=== PATIENT | male | born 1935 | race Caucasian/White ===

== ENCOUNTER → 2017-07-16 | Outpatient (CLI) | payer MEDICARE, OTHER ==
[~2017-07-16] MED LIST: ADVAIR 10028 PUFF/IN IN; CHLORDIAZEPOXID10 MG PO; DILTIAZEM30 MG FT; DOXAZOSIN2 MG PO; LIPITOR10 MG PO; NEXIUM40 MG PO; SYNTHROID 0.00.05 MG PO
--- NOTE | 2017-07-16 15:01 | RADIOLOGY REPORT PS360 ---
PROCEDURE: 2-D M-mode and color Doppler study INDICATIONS FOR THE TEST: Chest pain X COPDX Heart MurmurX Tobacco SmokingEX PalpitationsX Fatigue Syncope Edema HypertensionXDiabetes Mellitus Rheumatic Fever SOB DOEXObesity Hyperlipidemia Family History HD Additional History PATIENT INFORMATION HEIGHT: 66 WEIGHT:186 GENDER: Male B/P:144/83 2-D/M-MODE INTERPRETATION: 2-D MEASUREMENTS OBSERVED VALUES IN CMS Right Ventricular Dimension (RVDd) 2.2 Interventricular Septum (Thickness)(IVsd) 1.2 Left Ventricular Internal Dimensions(LVIDd) 3.6 Left Ventricular Posterior Wall (Thickness)(LVPWd) 1.2 Aortic Root 3.8 Aortic Cusp Separation 2.8 Left Atrial Dimensions (LAD) 3.1 2D 1. Left atrium is qualitatively mildly enlarged, left ventricle is normal size, there is mild concentric hypertrophy, visually estimated ejection fraction 55% with no obvious regional wall motion abnormality. 2. The right atrium and right ventricle are mildly enlarged with normal contractility. 3. The aortic valve is minimally thickened and fibrosed. 4. The mitral and tricuspid valve are grossly normal. 5. The pulmonic valve is poorly visualized. 6. No significant pericardial effusion noted. DOPPLER INTERROGATION: Doppler interrogation of the aortic, mitral and tricuspid valvular presence of mild mitral and tricuspid regurgitation, tricuspid and jet velocity insufficient for calculation of the right ventricular systolic pressure, grade 1 diastolic dysfunction seen without tissue Doppler evidence of raised left atrial pressure. CONCLUSION: 1. Mildly dilated, normal left ventricular size, mild concentric left ventricular hypertrophy, visually estimated ejection fraction 55% with no obvious regional wall motion abnormality. Grade 1 diastolic dysfunction seen without tissue Doppler evidence of raised left atrial pressure. 2. Mildly enlarged right atrium and right ventricle, contractility of the right ventricle is normal. 3. Mild mitral and tricuspid regurgitation. 4. No significant pericardial effusion noted.
--- NOTE | 2017-07-18 13:28 | RADIOLOGY REPORT PS360 ---
History and Indications: Hypertension, hyperlipidemia, chest pain, shortness of breath and fatigue Procedure: Patient exercised on Salvatore protocol 6 minutes and 20 seconds ,resting heart rate was 94 bpm, resting blood pressure 152/82, with exercise maximum heart rate achieved was 133 bpm which is equal to 96% of the maximum predicted heart rate and a blood pressure was 180/76. Test was stopped due to shortness of breath and fatigue patient denied any complained of chest pain. Patient has adequate exercise capacity achieved 7mets of workload on treadmill, the blood pressure response to exercise was adequate. Electrocardiogram: Resting echocardiogram showed sinus rhythm, with exercise there is less than 1.[address] segment depression noted from the baseline EKG, however in the recovery patient developed left bundle branch block. The EKG portion of the exercise Myoview is nondiagnostic due to development of the left bundle-branch block. Cardiac stress and resting SPECT images: Cardiac stress and rest SPECT images were obtained using technetium 99 Myoview 10.5 mCi at rest and 31.4 mCi at stress, gated SPECT further analysis of segmental wall motion and calculation of ejection fraction also done. Cardiac stress and rest SPECT images show uniform myocardial activity without any segmental perfusion abnormality, either derived ejection fraction is over 65% with no obvious regional wall motion abnormality, right ventricle is mildly enlarged with normal contractility. Conclusion: 1. The EKG portion of the exercise Myoview is nondiagnostic as patient is mild left bundle-branch block during this study, patient has adequate exercise capacity achieved 7mets of workload on treadmill, the blood pressure response to exercise was adequate. Test was stopped due to shortness of breath patient denied any complained of chest pain. 2. No obvious scintigraphic evidence of reversible ischemia seen at this level of exercise, either derived ejection fraction is over 65% with no obvious regional wall motion abnormality, right ventricle is normal size and contractility.
== END ==
LOC: RAD 07:03
DX: R07.9 Chest pain, unspecified (principal); R06.02 Shortness of breath; R53.83 Other fatigue; I65.23 Occlusion and stenosis of bilateral carotid arteries; R42 Dizziness and giddiness
CPT/HCPCS: A9502

== ENCOUNTER 2017-07-29 07:34 | Day surgery (SDC) | payer MEDICARE, OTHER ==
[2017-07-29 08:39] LABS: HEMOGLOBIN 16.6 g/dL (14.1-18.0); LYMPH # 4.5 K/mm3 (0.7-4.5); LYMPH % 41.1 % (10-50)
[2017-07-29 08:46] LABS: BUN 18 mg/dL (7-18); GFR (ESTIMATED) 39 ML/MIN (>60)
--- NOTE | 2017-07-29 11:06 | RADIOLOGY REPORT PS360 ---
CARDIAC CATHETERIZATION DATE OF CATHETERIZATION:07/29/2017 9:20 AM PROCEDURES: 1. Left heart catheterization 2. Left ventriculogram 3. Selective coronary angiogram 4. FFR to the LAD INDICATION FOR TEST: 1. Abnormal Myoview stress test 2. Coronary artery disease Informed consent was obtained prior to the procedure. COMPLICATIONS: None ESTIMATED BLOOD LOSS: Less than 10 ml. TECHNIQUE: One percent lidocaine used to anesthetize the right anterior aspect of the wrist. The right radial artery was accessed via the Seldinger technique. A 6 [place] sheath was placed in the right radial artery. 2.5 mg of verapamil, 800 mcg of nitroglycerin and 5000 U Heparin were given through the arterial sheath. The trap catheter was also used to perform left heart catheterization left ventriculogram and selective coronary angiogram. At the end of the diagnostic angiogram and additional 3000 units of heparin was administered intravenously giving an ACT of 299. An additional 2000 units of heparin was administered intravenously. An 2heuresavant left guide catheter was placed in the ascending aorta and an FFR wire was normalized. The wire was in placed into the distal LAD after the catheter was used to engage the left main artery. Adenosine was infused in the FFR index dropped to 0.84. This do not meet hemodynamic significance therefore the apparatus was removed the sheath was removed good hemostasis was achieved using TR banding patient was transferred to the postop holding area in stable condition ANGIOGRAPHIC RESULTS: 1. The left main artery normal 2. The left anterior descending artery has proximal concentric 40% stenosis with remaining vessel normal 3. The circumflex artery is dominant and has proximal mid vessel 30% stenosis 4. The right coronary artery nondominant and has proximal to mid vessel 30% stenoses 5. The ENGEL ventriculogram reveals normal at 65% 6. The left ventricular end-diastolic pressure 10 mmHg IMPRESSION: 1. Mild to moderate coronary artery disease as described above 2. Normal ejection fraction 3. Normal left ventricular end-diastolic pressure PLAN: 1. Medical management 2. LDL less than 55 3. Risk factor modification 4. 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
[2017-07-29 14:36] VITALS: BP 122/64
== END 2017-07-29 14:44 | disposition home or self-care (01) ==
LOC: CATHLAB 07:34
PROVIDERS: Internal Medicine
PROC: B2111ZZ Fluoroscopy of Multiple Coronary Arteries using Low Osmolar Contrast (ICD-10-PCS; 2017-07-29)
PROC: B2151ZZ Fluoroscopy of Left Heart using Low Osmolar Contrast (ICD-10-PCS; 2017-07-29)
PROC: 4A033BC Measurement of Arterial Pressure, Coronary, Percutaneous Approach (ICD-10-PCS; 2017-07-29)
PROC: 4A023N7 Measurement of Cardiac Sampling and Pressure, Left Heart, Percutaneous Approach (ICD-10-PCS; principal; 2017-07-29 09:00)
DX: I25.10 Atherosclerotic heart disease of native coronary artery without angina pectoris (principal); R94.39 Abnormal result of other cardiovascular function study; I11.9 Hypertensive heart disease without heart failure; R55 Syncope and collapse
CPT/HCPCS: C1725; C1769; J0153; J1644; Q9967

== ENCOUNTER 2017-08-09 08:11 | Day surgery (SDC) | payer MEDICARE, OTHER ==
--- NOTE | 2017-08-09 09:59 | Operative Note ---
Procedure: Date of procedure: 08/09/17 Time of procedure: 0900 Procedure performed: Implantation of Loop Recorder Indication: syncope LBBB on EKG Technique: Technique: 1 percent lidocaine with epinephrine used to anesthetize the size. The LEFT anterior aspect of the chest along the LEFT sternal border. Using the preformed scalpel, an incision was made in the loop recorder was placed subcutaneously without difficulty. Following the deployment of the loop recorder interrogation of the device was performed to ensure appropriate voltage was being detected. Once this was verified. Steri-Strips were placed over the incision and the patient was prepped to discharge home. Patient tolerated procedure well with minimal discomfort. Impression: Successful deployment of loop recorder Serial number: [id number] Plan: Routine post op care at [id number]
--- NOTE | 2017-08-09 09:59 | Operative Note ---
Procedure: Date of procedure: 08/09/17 Time of procedure: 0900 Procedure performed: Implantation of Loop Recorder Indication: syncope LBBB on EKG Technique: Technique: 1 percent lidocaine with epinephrine used to anesthetize the size. The LEFT anterior aspect of the chest along the LEFT sternal border. Using the preformed scalpel, an incision was made in the loop recorder was placed subcutaneously without difficulty. Following the deployment of the loop recorder interrogation of the device was performed to ensure appropriate voltage was being detected. Once this was verified. Steri-Strips were placed over the incision and the patient was prepped to discharge home. Patient tolerated procedure well with minimal discomfort. Impression: Successful deployment of loop recorder Serial number: [id number] Plan: Routine post op care at [id number]
[2017-08-09 10:19] VITALS: BP 128/76
== END 2017-08-09 10:32 | disposition home or self-care (01) ==
LOC: CATHLAB 08:11
PROVIDERS: Internal Medicine
PROC: 0JH632Z Insertion of Monitoring Device into Chest Subcutaneous Tissue and Fascia, Percutaneous Approach (ICD-10-PCS; principal; 2017-08-09 09:15)
DX: R55 Syncope and collapse (principal); I44.7 Left bundle-branch block, unspecified
CPT/HCPCS: C1764